=== PATIENT | male | born 1940 | race Caucasian/White ===

== ENCOUNTER 2016-11-27 07:47 | Inpatient (IN) | payer MEDICARE, OTHER ==
[2016-11-27] MEDS ORDERED: Diazepam TAB(*) 5 MG ONE (09:17)
[2016-11-27] MEDS ORDERED: Iodixanol* (CONTRAST) 320 MG/ML 100 ML SDV ONE ×2 (09:31→11:17)
[2016-11-27] MEDS ORDERED: Lidocaine 1% INJ* 10 MG/ML 30 ML SDV ONE (09:31)
[2016-11-27] MEDS ORDERED: Heparin 2 UNITS/ML IVPREMIX* 3,000 ML IV ONE (09:31)
[2016-11-27] MEDS ORDERED: fentaNYL* 50 MCG/ML 2 ML VIAL (100 MCG VIAL) ONE (09:33)
[2016-11-27] MEDS ORDERED: Midazolam* 1 MG/ML 5 ML VIAL (5 MG) ONE (09:33)
[2016-11-27] MEDS ORDERED: nitroGLYCERIN DRIP* 250 ML ONE (10:21)
[2016-11-27] MEDS ORDERED: Bivalirudin(*) 250 MG VIAL ONE ×3 (10:21→11:12)
[2016-11-27] MEDS ORDERED: Clopidogrel TAB* 75 MG ONE (10:21)
[2016-11-27] MEDS ORDERED: Heparin 2 UNITS/ML IVPREMIX* 1,000 ML IV ONE (11:12)
[2016-11-27] MEDS ORDERED: Dextrose 50% Syringe 50 ML* 25 GM/50 ML SYRINGE IV PUSH PRN (12:41)
[2016-11-27] MEDS ORDERED: ZOLPIDEM 5 MG PO (12:44)
[2016-11-27] MEDS ORDERED: ATROPINE IV (12:44)
[2016-11-27] MEDS ORDERED: Acetaminophen TAB* 325 MG PO PRN (12:45)
[2016-11-27] MEDS ORDERED: NS 0.45% 1000 ML BAG* 1,000 ML IV SCH (13:00)
[2016-11-27] MEDS: Atorvastatin* 80 MG TAB PO SCH (14:04)
[2016-11-27] MEDS: Losartan TAB* 25 MG PO SCH (14:09)
[2016-11-27] MEDS: Insulin LISPRO* 1 UNITS UNIT SUBCUT SCH ×2 (17:15→21:35)
[2016-11-27] MEDS: Metoprolol Tartrate TAB* 25 MG PO SCH (21:35)
--- NOTE | 2016-11-27 22:26 | CATH ---
CC: Dr. Schroeder * ANGIOPLASTY REPORT: DATE OF PROCEDURE: 11/27/16 - ROOM #ICU-06 INDICATION: The patient is a 75-year-old male, patient of Dr. Schroeder, who underwent coronary angiogram earlier today showing moderate to severe stenosis of the distal right coronary artery and mid PL branch of the distal small artery. Previously underwent stenting of the proximal to mid right coronary artery. Percutaneous coronary intervention to the distal right coronary artery. Performed by Dr. Benoit. The patient has been premedicated before. The 6-Jamaican sheath was already in the right femoral artery. Angiomax and Plavix was administered. A 6-Jamaican AR2 guiding catheter was used and a 0.014 inch short run- through wire into the distal PL branch. Unable to advance a 1.5 and 2.5 balloon past the old stent in the proximal, mid, right coronary artery. The short run through was exchanged with a long run through and unable to advance a microcatheter past the old stent. The long run through was withdrawn and a Wiggle wire was advanced through the microcatheter into the distal PDA, unable to advance into the PL branch. A 1.5 balloon was advanced and the stenosis in the distal right coronary artery was predilated. It was then predilated using 2.5 x 12 compliant balloon and a 2.5 x 12 Synergy stent, was unable to cross through the old stent. A second short run-through was advanced as the roselia wire next to the Wiggle wire and eventually the 2.5 x 12 Synergy stent was able to reach the distal right coronary artery. This was deployed at 20 atmospheres. Stenosis was reduced from 80% type A to less than 30% residual stenosis despite high pressure inflation. The catheter and sheath was removed. Angio-Seal was used to close the right femoral artery without complication. CONCLUSION: Successful Synergy stent deployment to the distal right coronary artery. [id number]/CPS #: [id number] [facility]ENTERJuaquin
--- NOTE | 2016-11-27 23:42 | CATH ---
CC: Dr. Templeton * CARDIAC CATHETERIZATION REPORT: DATE OF PROCEDURE: 11/27/16 - ROOM #ICU-06 PROCEDURES: Left cardiac catheterization, selective coronary angiography, left ventriculography. INDICATIONS: The patient is a 75-year-old male patient with known history of severe coronary artery disease, multiple interventions and stenting in the past of the LAD and of the RCA with recent evaluation with fatigability and lack of energy and progressive shortness of breath. Although he had a nuclear Myoview stress test that showed no significant ischemia, he continues to be symptomatic. He does have significant comorbidities including obesity, diabetes mellitus, systemic arterial hypertension, hyperlipidemia. Because of his continuing symptoms and known history of severe CAD, he was further referred for cardiac catheterization to evaluate his coronary anatomy. DESCRIPTION OF PROCEDURE: After informed written consent had been obtained, the patient was brought into the cardiac catheterization lab, where the right femoral region was prepped and draped in the usual sterile fashion. 1% Xylocaine was used for local anesthesia. Next, the right femoral artery was entered and a long 6- Maltese sheath was placed because of significant tortuosity at the iliac and aortic abdominal aortic level. Wholey catheter initially was used. Left coronary engaged and left coronary arteriography performed using the JL4 catheter. This catheter was removed and a 6-Maltese JR4 catheter was advanced over the arch of the aorta, right coronary engaged, and right coronary arteriography performed. This catheter was removed and 6-Maltese pigtail catheter was advanced over the arch of the aorta into the left ventricle where pressure recordings of the left ventricle were used. Actual left ventriculography was not performed to minimize any dye-induced nephrotoxicity in a diabetic patient. At this point, I have discussed this patient further with Dr. Benoit from the interventional cardiology services who kindly reviewed the findings, and please refer to a separate report for further intervention of the posterolateral branch of the RCA as per Dr. Benoit. HEMODYNAMICS: The aortic pressure is 144/78 mmHg, left ventricle is 140 mmHg with an LVEDP of 8 mmHg. Left main coronary artery: The left main coronary artery was a good caliber vessel. It gave rise to left anterior descending artery and circumflex coronary artery. The left main was free of any significant disease. Left anterior descending artery: The left anterior descending artery was a large caliber vessel. It did reach and wrap around the apex of the left ventricle, readily visible stents in the proximal and mid LAD without any significant in-stent restenosis appreciated. Circumflex coronary artery: The circumflex coronary artery showed the high obtuse marginal has an ostium of about 50% to 60% disease. Right coronary artery: The right coronary artery was a large caliber vessel. It was dominant in the proximal to mid and distal segment 50% disease. The posterolateral branch has about at least 70% disease, which was a good caliber vessel. Left ventriculography: Showed pressure recordings from the aortic pressure 144/ 78 mmHg, left ventricle 140 with an LVEDP of 8 mmHg. CONCLUSION: 1. Widely patent stents of the LAD and of the RCA as described. 2. 50% to 60% ostial stenosis of high lateral obtuse marginal branch of the left circ. 3. At least 70% stenosis of posterolateral branch of the RCA. Please refer to a separate report as per Dr. Bneoit for further intervention with angioplasty and stenting of the posterolateral branch of the RCA. [id number]/CPS #: [id number] MTDD
[2016-11-28 01:15] LABS: Troponin I 0.06 ng/mL (<0.04)
[2016-11-28 06:29] LABS: Hematocrit 40 % (42-52); Hemoglobin 13.2 g/dl (14.0-18.0); Mean Corpuscular HGB Conc 33 g/dl (31-36); Mean Corpuscular Hemoglobin 32 pg (27-31); Mean Corpuscular Volume 95 fL (80-94); Mean Platelet Volume 7 um3 (7.4-10.4); Red Blood Count 4.18 10^6/ul (4.0-5.4); Red Cell Distribution Width 14 % (10.5-15); White Blood Count 5.9 10^3/ul (3.5-10.8)
[2016-11-28 06:40] LABS: Albumin 4.2 g/dL (3.2-5.2); BUN/Creatinine Ratio 10.5 (8-20); Calcium 9.7 mg/dL (8.6-10.3); EGFR African American 80.1 (>60); EGFR Non-African American 62.3 (>60); Globulin 2.5 g/dL (2-4); Potassium 3.9 mmol/L (3.5-5.0); Total Bilirubin 0.8 mg/dL (0.2-1.0); Total Protein 6.7 g/dL (6.4-8.9)
[2016-11-28] MEDS: Insulin LISPRO* 1 UNITS UNIT SUBCUT SCH ×2 (08:27→12:17)
[2016-11-28] MEDS: Losartan TAB* 25 MG PO SCH (08:28)
[2016-11-28] MEDS: Metoprolol Tartrate TAB* 25 MG PO SCH (08:28)
[2016-11-28] MEDS: Atorvastatin* 80 MG TAB PO SCH (08:29)
[2016-11-28] MEDS ORDERED: amLODIPine TAB* 5 MG PO SCH (09:00)
[2016-11-28] MEDS ORDERED: CLOPIDOGREL 75 MG PO SCH (09:00)
[2016-11-28] MEDS ORDERED: DOCUSATE 100 MG PO SCH (09:00)
[2016-11-28] MEDS ORDERED: Hydrochlorothiazide TAB* 25 MG PO SCH (09:00)
[2016-11-28] MEDS ORDERED: Aspirin TAB* 325 MG PO SCH (09:00)
[2016-11-28] MEDS ORDERED: CMC Dabigatran CAP(NF) 150 MG CAP PO SCH (10:30)
[2016-11-28 14:04] VITALS: BP 84/66
--- NOTE | 2016-11-29 05:18 | DS ---
CC: Dr. Templeton; Dr. Schroeder * DISCHARGE SUMMARY: DATE OF ADMISSION: 11/27/16 DATE OF DISCHARGE: 11/28/16 Please refer to out full history and physical note from Dr. Schroeder's office back on 11/18/16. Please refer to our full cardiac catheterization report Dr. Schroeder 11/27/16. Please refer to our full angioplasty stenting report Dr. Benoit 11/27/16. DISCHARGE DIAGNOSES: 1. Known history of severe coronary artery disease with multiple angioplasty and stenting in the past. 2. Status post successful angioplasty and stenting of the distal right coronary artery that was moderate to severe stenosis by Dr. Benoit 11/27/16. LABORATORY DATA: Most recent labs, chemistry from today sodium 136, potassium 3.9, chloride 102, BUN 12, and creatinine 1.14. Troponin 0.06 and CBC on , today, white blood cells 5.9, hemoglobin 13.2, hematocrit 40, and platelets 156. DISCHARGE MEDICATIONS: The patient is to continue on all of his home medications includin. Aspirin 325 p.o. daily. 2. Norvasc 10 mg p.o. daily. 3. Pradaxa 150 mg p.o. daily. 4. Lipitor 80 mg p.o. daily. 5. Plavix 75 mg p.o. daily. 6. Hydrochlorothiazide 12.5 mg p.o. daily. 7. Cozaar 100 mg p.o. daily. 8. Insulin adjusted. 9. Lopressor 25 mg p.o. b.i.d. 10. Metformin 500 mg p.o. 5 of them at bedtime. 11. Fenofibrate 134 mg p.o. daily. 12. Levothyroxine 200 mcg daily. 13. Potassium 10 mEq daily. 14. Vitamin D, vitamin C one p.o. daily. The patient is a 75-year-old male patient who does have a known history of severe coronary artery disease, comorbidities of obesity, systemic cardiac hypertension, hyperlipidemia, and diabetes mellitus who had been having progress of symptoms of shortness of breath, easy fatigability, lack of energy. He underwent nuclear Myoview stress test that showed no overt ischemia. Although he gives no symptoms of chest pain, he continues to be symptomatic. He was further referred for a cardiac catheterization to evaluate his coronary anatomy. His last cardiac cath was in 2009. Please refer to author report for the cardiac cath. In summary, he was found to have overtly widely patent stents of a previously stented complex LAD lesions and proximal to mid RCA. He was found to have moderate to severe stenosis of the distal RCA as well as of the mid branch of the posterolateral branch. He underwent successful angioplasty and stenting by Dr. Benoit to his distal RCA with drug-eluting stent with 12.5 x 12 Synergy stent. He has done well, he fells overall well. I did see him today. He gives no symptoms of chest pain, no orthopnea, no dizziness, no syncope. PHYSICAL EXAMINATION: Vitals: Blood pressure 148/60, pulse 70. On exam, normocephalic and atraumatic. Head, ear, nose, and throat essentially benign. Neck supple. JVD is not elevated. No carotid bruits. No masses in the neck is appreciated. Chest is clear to auscultation. No rales, no wheezes, no added sounds. Heart: Normal. Regular S1 and S2. No added sounds, no gallops , and no rubs. Abdomen: Benign, positive bowel sounds. Extremities: No edema , no cyanosis, and no clubbing. Skin exam is normal. Psych: Normal affect and mood. [employer]CE[employer]: No focal deficit. Examination of the right groin area, overall benign without any evidence of bleeding. No hematoma, no swelling, and no bruit on auscultating the right femoral artery. PLAN: The patient is hemodynamically stable to be discharged home as outlined above and he will follow the specific instructions post cardiac catheterization and to continue his home medications accordingly. We spent time for aggressive lifestyle modification talking about this. Low salt, low fat diet. Attempts to lose weight. Physical activity as tolerated. He is to follow up with Dr. Schroeder next week. We made a great emphlysis for him to continue aspirin and Plavix at least for the next 12 months. More than half of at least 30 plus minutes was in the education and counseling mode [id number] explaining all of the above and going over his discharge instructions. [id number]/[facility] #: [id number] EVAN
== END 2016-11-28 16:09 | disposition home or self-care (01) | DRG 247 ==
LOC: CHICATH 07:47 → ICU 11:34
PROVIDERS: ADMIT Internal Medicine Cardiovascular Disease; ATTEND Internal Medicine Cardiovascular Disease
PROC: 3E033PZ Introduction of Platelet Inhibitor into Peripheral Vein, Percutaneous Approach (ICD-10-PCS; 2016-11-27)
PROC: B2111ZZ Fluoroscopy of Multiple Coronary Arteries using Low Osmolar Contrast (ICD-10-PCS; 2016-11-27)
PROC: 4A023N7 Measurement of Cardiac Sampling and Pressure, Left Heart, Percutaneous Approach (ICD-10-PCS; 2016-11-27)
PROC: B2151ZZ Fluoroscopy of Left Heart using Low Osmolar Contrast (ICD-10-PCS; 2016-11-27)
PROC: 027034Z Dilation of Coronary Artery, One Artery with Drug-eluting Intraluminal Device, Percutaneous Approach (ICD-10-PCS; principal; 2016-11-27 09:30)
DX: I25.10 Atherosclerotic heart disease of native coronary artery without angina pectoris (principal); E11.40 Type 2 diabetes mellitus with diabetic neuropathy, unspecified; A69.20 Lyme disease, unspecified; I27.2 Other secondary pulmonary hypertension; I25.5 Ischemic cardiomyopathy; I48.2 Chronic atrial fibrillation; G47.33 Obstructive sleep apnea (adult) (pediatric); E03.9 Hypothyroidism, unspecified; E29.1 Testicular hypofunction; M23.309 Other meniscus derangements, unspecified meniscus, unspecified knee; J31.0 Chronic rhinitis; E66.9 Obesity, unspecified; E78.2 Mixed hyperlipidemia; E55.9 Vitamin D deficiency, unspecified; I10 Essential (primary) hypertension; I05.9 Rheumatic mitral valve disease, unspecified; Z95.5 Presence of coronary angioplasty implant and graft; Z90.49 Acquired absence of other specified parts of digestive tract; Z98.49 Cataract extraction status, unspecified eye; Z88.8 Allergy status to other drugs, medicaments and biological substances; Z87.891 Personal history of nicotine dependence; Z68.37 Body mass index [BMI] 37.0-37.9, adult; Z82.5 Family history of asthma and other chronic lower respiratory diseases; Z82.3 Family history of stroke; Z82.49 Family history of ischemic heart disease and other diseases of the circulatory system; Z79.82 Long term (current) use of aspirin; Z79.02 Long term (current) use of antithrombotics/antiplatelets; Z79.4 Long term (current) use of insulin
CPT/HCPCS: 36415; 80048; 80053; 82550; 82553; 84484; 85025; 85027; 85610; 85730; 87641; 93005; 93458; 99156; 99157; A9270-GY; C1725; C1760; C1769; C1876; C1887; C9600-RC; J0583; J1644; J2001; J2250; J3010

== ENCOUNTER 2019-06-16 09:50 | Emergency (ER) | payer MEDICARE, OTHER ==
[2019-06-16 10:11] VITALS: BP 128/76
--- NOTE | 2019-06-16 10:19 | ED ---
Back Pain - HPI Summary HPI Summary: 78 year old M with hx sciatica and hx diabetes arriving via private car to [facility] accompanied by complains of right-sided low back pain radiating to right buttocks, right thigh, and right calf x3 weeks. Patient had sciatica last year for 2 weeks. He did not receive treatment then and the pain resolved on its own. Hx pinched nerve in L1 and L2 and bulging disc in L2 and L3 which cause him back pain occasionally. Patient denies any fever, chills, diaphoresis , erythema of eyes, sore throat, chest pain, shortness of breath, cough, abdominal pain, nausea/vomiting, dysuria, hematuria, fecal or urinary dysfunction, myalgia, edema, swelling, rash, dizziness, tingliness/numbness. The patient rates the pain 10/10 in severity. Symptoms aggravated by ambulating , moving, having bowel and urinary movements, lifting heavy objects. Symptoms alleviated by standing. Medications reviewed. Patient has not taken any pain medications in addition to his normal medication regimen. He is prescribed tramadol 50 mg which he has been taking for the pain. On Metformin, Levemir, gabapentin, anticoagulants. Hx blood clot in heart secondary to atrial fibrillation. No hx DVT. Allergies noted. Home Medications Medication Instructions Recorded Confirmed Type Clopidogrel TAB* [Plavix TAB*] 75 mg PO DAILY 03/05/12 06/22/18 History Levothyroxine TAB* [Synthroid 150 175 mcg PO 0800 03/05/12 06/22/18 History MCG TAB*] Propranolol HCl [Inderal LA] 120 mg PO DAILY 03/05/12 06/22/18 History Cyanocobalamin INJ * [Vitamin B12 1,000 mcg IM MONTHLY 04/08/12 06/22/18 History INJ *] Ferrous Sulfate TAB* 325 mg PO DAILY 04/08/12 06/22/18 History Insulin Aspart [Novolog Flexpen] 15 unit SUBCUT DAILY 04/08/12 06/22/18 History Insulin Detemir [Levemir Flextouch 40 units SUBCUT BID 04/08/12 06/22/18 History 100 units/ml 3 ml x 5 Pens] Nitroglycerin [Nitrostat] 0.3 mg SL SEE INSTRUCTIONS PRN 04/08/12 06/22/18 History metFORMIN* [Glucophage 500 MG TAB 5 tab PO BEDTIME 04/08/12 06/22/18 History *] Dabigatran Etexilate Mesylate 150 mg PO BID 01/13/13 06/22/18 History [Pradaxa] Primidone 50 mg TAB (*) [Mysoline 100 mg PO QPM 01/02/14 06/22/18 History 250 mg TAB (*)] Nitroglycerin [Nitro-Dur] 0.4 mg TOPICAL SEE INSTRUCTIONS 11/26/16 06/22/18 History Calcium Carbonate/Vitamin D3 1 tab PO DAILY 06/22/18 06/22/18 History [Calcium 1,000 + D3 Caplet] Felodipine (NF) [Plendil (NF)] 2.5 mg PO DAILY 06/22/18 06/23/18 History Gabapentin CAP(*) [Neurontin 300 300 mg PO TID PRN 06/22/18 06/22/18 History CAP(*)] Metaxalone [Skelaxin] 400 - 800 mg PO TID PRN 06/22/18 06/22/18 History [place]rav[place]-3 Acid Ethyl Esters [Lovaza] 2 gm PO DAILY 06/22/18 06/22/18 History Potassium Chlor TAB* [Klor Con ER 10 meq PO DAILY 06/22/18 06/22/18 History TAB 10 MEQ*] Rosuvastatin Calcium [Crestor] 5 mg PO BEDTIME 06/22/18 06/22/18 History Telmisartan/Hydrochlorothiazid 1 tab PO DAILY 06/22/18 06/22/18 History [Micardis Hct 80-12.5 mg Tablet] Varicella-Zoster Ge/As01b/Pf 50 mcg IM SEE INSTRUCTIONS 06/22/18 06/22/18 History [Shingrix Vial Kit] HYDROcodone/ACETAMIN 5-325 MG* 1 tab PO Q6H PRN #20 tab MDD 4 06/16/19 Rx [[place] 5-325 TAB*] Lidocaine PATCH 5%* [Lidoderm 5% 1 patch TRANSDERM DAILY #14 patch 06/16/19 Rx Patch*] predniSONE 50 mg TAB [Deltasone 50 50 mg PO DAILY #4 tab 06/16/19 Rx mg TAB] - History of Current Complaint Chief Complaint: EDBackInjuryPain Stated Complaint: RIGHT HIP PAIN Hx Obtained From: Patient, Family/Staff Midwife - Onset/Duration: Lasting Weeks - 3, Still Present Onset/Duration: Started Weeks Ago - 3, Still Present Timing: Constant Severity Currently: Severe Pain Intensity: 10 Pain Scale Used: 0-10 Numeric Aggravating Symptom(s): Other - ambulating, moving, having bowel and urinary movements, lifting heavy objects Alleviating Symptom(s): Other - standing Associated Signs And Symptoms: Positive: Negative - fever, chills, diaphoresis, erythema of eyes, sore throat, chest pain, shortness of breath, cough, abdominal pain, nausea/vomiting, dysuria, hematuria, fecal or urinary dysfunction, myalgia, edema, swelling, rash, dizziness, tingliness/numbness - Allergies/Home Medications Allergies/Adverse Reactions: Allergies Allergy/AdvReac Type Severity Reaction Status Date / Time MS Ayala [From [email or web address]] Allergy Flushing Verified 06/23/18 10:51 Adhesive Tape AdvReac Intermediate Rash Verified 06/23/18 10:51 Home Medications: Home Medications Clopidogrel TAB* [Plavix TAB*] 75 mg PO DAILY 03/05/12 [History Confirmed ] Levothyroxine TAB* [Synthroid 150 MCG TAB*] 175 mcg PO 0800 03/05/12 [History Confirmed 06/22/18] Propranolol HCl [Inderal LA] 120 mg PO DAILY 03/05/12 [History Confirmed ] Cyanocobalamin INJ * [Vitamin B12 INJ *] 1,000 mcg IM MONTHLY 04/08/12 [History Confirmed 06/22/18] Ferrous Sulfate TAB* 325 mg PO DAILY 04/08/12 [History Confirmed 06/22/18] Insulin Aspart [Novolog Flexpen] 15 unit SUBCUT DAILY 04/08/12 [History Confirmed 06/22/18] Insulin Detemir [Levemir Flextouch 100 units/ml 3 ml x 5 Pens] 40 units SUBCUT BID 04/08/12 [History Confirmed 06/22/18] Nitroglycerin [Nitrostat] 0.3 mg SL SEE INSTRUCTIONS PRN 04/08/12 [History Confirmed 06/22/18] metFORMIN* [Glucophage 500 MG TAB *] 5 tab PO BEDTIME 04/08/12 [History Confirmed 06/22/18] Dabigatran Etexilate Mesylate [Pradaxa] 150 mg PO BID 01/13/13 [History Confirmed 06/22/18] Primidone 50 mg TAB (*) [Mysoline 250 mg TAB (*)] 100 mg PO QPM 01/02/14 [ History Confirmed 06/22/18] Nitroglycerin [Nitro-Dur] 0.4 mg TOPICAL SEE INSTRUCTIONS 11/26/16 [History Confirmed 06/22/18] Calcium Carbonate/Vitamin D3 [Calcium 1,000 + D3 Caplet] 1 tab PO DAILY [History Confirmed 06/22/18] Felodipine (NF) [Plendil (NF)] 2.5 mg PO DAILY 06/22/18 [History Confirmed 06/23] Gabapentin CAP(*) [Neurontin 300 CAP(*)] 300 mg PO TID PRN 06/22/18 [History Confirmed 06/22/18] Metaxalone [Skelaxin] 400 - 800 mg PO TID PRN 06/22/18 [History Confirmed ] Kan[place]rav[place]-3 Acid Ethyl Esters [Lovaza] 2 gm PO DAILY 06/22/18 [History Confirmed 03/31] Potassium Chlor TAB* [Klor Con ER TAB 10 MEQ*] 10 meq PO DAILY 06/22/18 [ History Confirmed 06/22/18] Rosuvastatin Calcium [Crestor] 5 mg PO BEDTIME 06/22/18 [History Confirmed 06/22] Telmisartan/Hydrochlorothiazid [Micardis Hct 80-12.5 mg Tablet] 1 tab PO DAILY 06/22/18 [History Confirmed 06/22/18] Varicella-Zoster Ge/As01b/Pf [Shingrix Vial Kit] 50 mcg IM SEE INSTRUCTIONS 03/31 [History Confirmed 06/22/18] HYDROcodone/ACETAMIN 5-325 MG* [[place] 5-325 TAB*] 1 tab PO Q6H PRN #20 tab MDD 4 06/16/19 [Rx] Lidocaine PATCH 5%* [Lidoderm 5% Patch*] 1 patch TRANSDERM DAILY #14 patch 06/15 [Rx] predniSONE 50 mg TAB [Deltasone 50 mg TAB] 50 mg PO DAILY #4 tab 06/16/19 [Rx] PMH/Surg Hx/FS Hx/Imm Hx Endocrine/Hematology History: Reports: Hx Anticoagulant Therapy, Hx Diabetes, Hx Thyroid Disease - Hypothyroid, Hx Anemia, Other Endocrine/Hematological Disorders - HX Lyme disease Cardiovascular History: Reports: Hx Angina, Hx Angioplasty, Hx Coronary Artery Disease - STENTS, Hx Hypercholesterolemia, Hx Hypertension - ON MEDS, Hx Valvular Heart Disease, Other Cardiovascular Problems/Disorders - s/p stents 2008 & 2009 Denies: Hx Auto Implanted Cardiovert Defib, Hx Cardiac Arrest, Hx Cardiomegaly, Hx Congenital Heart Disease, Hx Congestive Heart Failure, Hx Deep Vein Thrombosis, Hx Myocardial Infarction, Hx Pacemaker/ICD Respiratory History: Reports: Hx Sleep Apnea - CPAP Denies: Hx Asthma, Hx Chronic Obstructive Pulmonary Disease (COPD) GI History: Reports: Hx Gall Bladder Disease - Removed 1987ish Denies: Hx Gastroesophageal Reflux Disease, Hx Gastrointestinal Bleed, Hx Hiatal Hernia History: Denies: Hx Chronic Renal Failure, Hx Renal Disease Musculoskeletal History: Reports: Hx Arthritis, Hx Back Problems Sensory History: Reports: Hx Cataracts - Interoccular lenses, Hx Contacts or Glasses - Reading glasses, Other Sensory Impairments - Mild hearing loss Denies: Hx Hearing Aid Opthamlomology History: Reports: Hx Cataracts - Interoccular lenses, Hx Contacts or Glasses - Reading glasses, Other Sensory Impairments - Mild hearing loss Neurological History: Reports: Hx Transient Ischemic Attacks (TIA), Other Neuro Impairments/Disorders - PAIN CLINIC PT Psychiatric History: Denies: Hx Panic Disorder - Surgical History Surgery Procedure, Year, and Place: 2008 & 2009 - cardiac stent placements. tonsils. cholecystectomy. bilateral cataract removal. (right) knee meniscus repair Hx Anesthesia Reactions: No Infectious Disease History: No Infectious Disease History: Reports: Hx Shingles - 2016 Denies: Hx Clostridium Difficile, Hx Hepatitis, Hx Human Immunodeficiency Virus (HIV), Hx of Known/Suspected MRSA, Traveled Outside the [place] in Last 30 Days - Family History Known Family History: Positive: Cardiac Disease - CAD - Social History Alcohol Use: None Hx Substance Use: Yes Substance Use Comment - Amount & Last Used: tramadol Hx Tobacco Use: Yes Smoking Status (MU): Former Smoker Type: Cigarettes Have You Smoked in the Last Year: No Review of Systems Negative: Fever, Chills, Skin Diaphoresis Negative: Erythema Negative: Sore Throat Negative: Chest Pain Negative: Shortness Of Breath, Cough Gastrointestinal: Negative - fecal dysfunction Negative: Abdominal Pain, Vomiting, Nausea Genitourinary: Negative - urinary dysfunction Negative: dysuria, hematuria Musculoskeletal: Negative - swelling Positive: Other - right-sided low back pain radiating to right buttocks, right thigh, and right calf . Negative: Myalgia, Edema Negative: Rash Neurological/Mental Status: Negative - dizziness, numbness/tingliness All Other Systems Reviewed And Are Negative: Yes Physical Exam - Summary Physical Exam Summary: Constitutional: Well-developed, Well-nourished, Alert. (-) Distressed Skin: Warm, Dry HENT: Normocephalic; Atraumatic Eyes: Conjunctiva normal Neck: Musculoskeletal ROM normal neck. (-) JVD, (-) Stridor, (-) Tracheal deviation Cardio: Rhythm regular, rate normal, Heart sounds normal; Intact distal pulses; The pedal pulses are 2+ and symmetric. Radial pulses are 2+ and symmetric. (-) Murmur Pulmonary/Chest wall: Effort normal. (-) Respiratory distress, (-) Wheezes, (-) Rales Abd: Soft, (-) tenderness, (-) Distension, (-) Guarding, (-) Rebound Musculoskeletal: (-) Edema; lower extremity strength is in tact; he is able to ambulate Lymph: (-) Cervical adenopathy Neuro: Alert, Oriented x3 Psych: Mood and affect Normal Triage Information Reviewed: Yes Vital Signs On Initial Exam: Initial Vitals Temp Pulse Resp BP Pulse Ox 97.6 F 80 16 128/76 98 06/16/19 10:06 06/16/19 10:06 06/16/19 10:06 06/16/19 10:06 06/16/19 10:06 Vital Signs Reviewed: Yes Procedures - Sedation Patient Received Moderate/Deep Sedation with Procedure: No Diagnostics - Vital Signs Vital Signs Temp Pulse Resp BP Pulse Ox 06/16/19 10:06 97.6 F 80 16 128/76 98 - Laboratory Lab Statement: Any lab studies that have been ordered have been reviewed, and results considered in the medical decision making process. Re-Evaluation - Re-Evaluation First Eval Re-Evaluation Time: 12:59 Change: Improved - patient is feeling much better after medications he agrees to discharge Back Pain Course/Dx - Course Course Of Treatment: 78 y/o M with hx sciatica and hx diabetes presents with right-sided low back pain radiating to right buttocks, right thigh, and right calf x3 weeks. Medications reviewed. Patient has not taken any pain medications in addition to his normal medication regimen. No hx DVT. Upon physical exam, his lower extremity strength is in tact and he is able to ambulate. In the ED course, the patient was given [place] and prednisone. He was also given a lidocaine patch. The patient feels much better after medications. Patient will be discharged home with prescription for [place] and lidocaine patch and follow up from his primary care provider. NSAIDs are contraindicated. He was advised to check his blood sugar while taking steroids, to increase insulin by 10 units if he develops blood glucose over 300 while on steroids, to discontinue tramadol while taking [place]. Patient was instructed to return to Emergency Department for new or worsening symptoms. Patient understands and is agreeable to this plan. - Diagnoses Provider Diagnoses: Right sided sciatica, Lumbar radiculopathy Discharge ED - Sign-Out/Discharge Documenting (check all that apply): Patient Departure - Discharge Plan Condition: Stable Disposition: HOME Prescriptions: HYDROcodone/ACETAMIN 5-325 MG* [T[place] 5-325 TAB*] 1 tab PO Q6H PRN #20 tab MDD 4 PRN Reason: Pain - Severe Lidocaine PATCH 5%* [Lidoderm 5% Patch*] 1 patch TRANSDERM DAILY #14 patch predniSONE 50 mg TAB [Deltasone 50 mg TAB] 50 mg PO DAILY #4 tab Patient Education Materials: Sciatica (ED), Lumbar Radiculopathy (ED) Referrals: Renetta Adams MD [Primary Care Provider] - 3 Days Additional Instructions: Check your blood sugar while you are taking steroids. Increase your insulin by 10 units if you develop blood glucose over 300 while on steroids. Discontinue your tramadol while taking [place]. Please follow up with your primary care provider in 3 days. Return to the Emergency Department for changing or worsening symptoms. - Attestation Statements Document Initiated by Scribe: Yes Documenting Scribe: Marilu Butterfield Provider For Whom Sonu is Documenting (Include Credential): Kervin Kim MD Scribe Attestation: Marilu Carrion, scribed for Kervin Kim MD on 06/16/19 at 1838.
[2019-06-16] MEDS ORDERED: HYDROcodone/ACETAMIN 5-325 MG* 1 TAB PO ONE (11:02)
[2019-06-16] MEDS ORDERED: Lidocaine PATCH 5%* 1 PATCH TRANSDERM ONE (11:03)
[2019-06-16] MEDS ORDERED: Lidocaine Patch REMOVE* 1 NOTE MISC SCH (21:00)
== END 2019-06-16 15:20 | disposition home or self-care (01) ==
LOC: ED 09:50
DX: M54.41 Lumbago with sciatica, right side (principal); M54.16 Radiculopathy, lumbar region; E11.9 Type 2 diabetes mellitus without complications; Z79.84 Long term (current) use of oral hypoglycemic drugs; Z79.4 Long term (current) use of insulin; E03.9 Hypothyroidism, unspecified; E78.00 Pure hypercholesterolemia, unspecified; I10 Essential (primary) hypertension; G47.30 Sleep apnea, unspecified; Z86.73 Personal history of transient ischemic attack (TIA), and cerebral infarction without residual deficits; Z95.5 Presence of coronary angioplasty implant and graft; Z79.01 Long term (current) use of anticoagulants; Z79.899 Other long term (current) drug therapy; Z88.8 Allergy status to other drugs, medicaments and biological substances; Z91.048 Other nonmedicinal substance allergy status
CPT/HCPCS: 99282; A9270-GY; J7512

== ENCOUNTER 2021-06-19 05:43 | Inpatient (IN) ==
[2021-06-19] MEDS ORDERED: Lactated Ringers 1000 ml BAG 1,000 ML IV SCH (06:00)
[2021-06-19] MEDS ORDERED: Buffered Lidocaine 1% SYRIN 1 ml INTRADERM ONE (06:00)
[2021-06-19] MEDS ORDERED: Famotidine IV 10 MG/ML 2 ml VIAL (20 mg) IV ONE (06:00)
[2021-06-19] MEDS ORDERED: Famotidine IV 10 MG/ML 2 ml VIAL (20 mg) ONE (06:14)
[2021-06-19] MEDS ORDERED: ceFAZolin 2 GM in NS PREMIX 2 GM/100 ML BAG IVPB ONE (06:14)
[2021-06-19] MEDS ORDERED: Dexamethasone IV 4 MG/ML VIAL 1 ml VIAL ONE (06:50)
[2021-06-19] MEDS ORDERED: Ondansetron 4 mg VIAL 2 MG/ML 2 ml VIAL ONE (06:50)
[2021-06-19] MEDS ORDERED: Propofol 10 MG/ML 20 ML BTL ONE ×2 (06:50→07:07)
[2021-06-19] MEDS ORDERED: Sterile Water for Inj 10 ML ONE (06:50)
[2021-06-19] MEDS ORDERED: Succinylcholine 200 mg VIAL 20 mg/ml 10 ml VIAL (200 mg) ONE (06:50)
[2021-06-19] MEDS ORDERED: Lidocaine 2% PF 5 ML VIAL ONE (06:50)
[2021-06-19] MEDS ORDERED: EPHEDrine (Pressors) 50 MG/ML VIAL ONE (06:50)
[2021-06-19] MEDS ORDERED: Phenylephrine 40 mcg/mL 10mL (400mcg) SYRINGE ONE (06:50)
[2021-06-19] MEDS ORDERED: Rocuronium 50 mg VIAL 10 mg/ml 5 ml VIAL (50 mg) ONE ×2 (06:51→09:04)
[2021-06-19] MEDS ORDERED: Midazolam 2 mg/2 ml VIAL 1 mg/ml 2 ml VIAL (2 mg) ONE (06:52)
[2021-06-19 06:53] LABS: Activated Partial Thrombo Time 29.1 seconds (26.0-38.0); INR 1.07 (0.86-1.15)
[2021-06-19] MEDS ORDERED: fentaNYL 100 mcg/2 ml 50 MCG/ML VIAL ONE (06:53)
[2021-06-19] MEDS ORDERED: Sevoflurane BOTTLE ONE (06:54)
[2021-06-19] MEDS ORDERED: ceFAZolin VIAL VIAL ONE ×2 (07:07→09:33)
[2021-06-19] MEDS ORDERED: Bupivacaine 0.5% SDV PF 30ML VIAL ONE (07:08)
[2021-06-19] MEDS ORDERED: BUPIVACAINE **LIPOSOME/PF 13.3 MG/ML (266MG/ 20ML) VIAL (RESTRICTED) INFIL ONE (08:00)
[2021-06-19] MEDS ORDERED: Phenylephrine IV 10 MG/ML 1 ml VIAL ONE (08:43)
[2021-06-19] MEDS ORDERED: Naloxone 0.4 mg VIAL 0.4 mg/ml 1 ml VIAL IV PRN (10:21)
[2021-06-19] MEDS ORDERED: fentaNYL 100 mcg/2 ml 50 MCG/ML VIAL IV PRN (10:21)
[2021-06-19] MEDS ORDERED: Ondansetron 4 mg VIAL 2 MG/ML 2 ml VIAL IV PRN ×2 (10:21→11:39)
[2021-06-19] MEDS ORDERED: HYDROmorphone 1 MG/1 ML SYRINGE ONE (11:39)
[2021-06-19] MEDS: HYDROmorphone 1 MG/1 ML SYRINGE IV PRN ×2 (11:41→11:56)
[2021-06-19] MEDS: Nitroglycerin 0.4 mg/hr PATCH (10 mg) TRANSDERM SCH (13:32)
[2021-06-19] MEDS ORDERED: Dextrose 50% Syringe 50 ml 25 GM/50 ML SYRINGE IV PUSH PRN (13:42)
[2021-06-19] MEDS: HYDROcodone/ACETAMIN 5/325 mg TAB PO PRN ×3 (14:11→23:36)
[2021-06-19] MEDS ORDERED: Potassium Chlor 10 meq TAB PO SCH (21:00)
[2021-06-19] MEDS ORDERED: Insulin GLARGINE 100 un/ml 10 ml VIAL SUBCUT SCH (21:00)
[2021-06-20] MEDS: HYDROcodone/ACETAMIN 5/325 mg TAB PO PRN ×4 (04:06→16:55)
[2021-06-20] MEDS: Nitroglycerin 0.4 mg/hr PATCH (10 mg) TRANSDERM SCH (08:27)
[2021-06-20] MEDS ORDERED: [UNRECOGNIZED DRUG - OTHER] PO SCH (09:00)
[2021-06-20 10:10] LABS: ABS Eosinophils 0.1 10^3/ul (0-0.6); ABS Lymphocytes 1.8 10^3/ul (1.0-4.8); ABS Monocytes 0.7 10^3/ul (0-0.8); ABS Neutrophils 4.3 10^3/ul (1.5-7.7); Eosinophil % 1.5 %; Hematocrit 36 % (42-52); Hemoglobin 11.8 g/dL (14.0-18.0); Mean Corpuscular HGB Conc 33 g/dL (31-36); Mean Corpuscular Hemoglobin 32 pg (27-31); Mean Corpuscular Volume 96 fL (80-94); Mean Platelet Volume 6.9 fL (7.4-10.4); Nucleated Red Blood Cells % 0.1; Platelet Count 152 10^3/uL (150-450); Red Blood Count 3.73 10^6 /uL (4.18-5.48); Red Cell Distribution Width 15 % (10-15)
[2021-06-20 10:44] LABS: Calcium 9.1 mg/dL (8.6-10.3); eGFR CKD-EPI 63.5 (>60)
[2021-06-20 16:35] VITALS: BP 117/51
== END 2021-06-20 18:55 | disposition home health service (06) | DRG 519 ==
LOC: AA 05:43 → SSU 12:47
PROVIDERS: ADMIT Neurological Surgery; ATTEND Neurological Surgery